=== PATIENT | female | born 1950 | race Caucasian/White ===

== ENCOUNTER → 2017-01-14 | Outpatient (CLI) | payer OTHER ==
[~2017-01-14] MED LIST: ALEVE OTC; PRAVACHOL PO
--- NOTE | ~2017-01-14 | MY11 ---
[facility] A Service of [facility] RADIOLOGY TEXT RESULTS PATIENT: WAGNER HORTON LOCATION: [facility] : 54 UNIT #: [id number] AGE: [address]: ROMA LIVE SEX: F ORDER DR: [id number] [address] [id number] MR#: [id number] Acc #: [id number] NAME: WAGNER HORTON : 1950 SEX: F STUDY DATE/TIME: 01/14/2017 10:08 UNIT: [facility] ROOM: STUDY DESCRIPTION: MY Mammogram Screening Dig Alfredito Attending Physician: Roma Live M.D. Ordering Physician: Physician Non-Staff Primary Care Physician: Roma Live M.D. MEDICAL IMAGING REPORT This report is preliminary unless electronic signature is present EXAM Bilateral digital screening mammogram with CAD. DATE 01/14/2017 HISTORY 66-year-old female with no personal or family history of breast cancer or current complaints. COMPARISON Bilateral screening mammogram, 12/12/2014, 05/13/2010. FINDINGS CC and MLO views were obtained of each breast utilizing digital technique and reviewed with an FDA-approved CAD device. Heterogeneously dense fibroglandular tissue is present bilaterally which can limit sensitivity on mammography. The parenchymal pattern is stable. No new or developing nodule, architectural distortion, or clustered microcalcification is seen. IMPRESSION BIRADS 1. Negative screening mammogram. Routine screening mammogram recommended in 1 year. Patients over the age of 40 are entered into a reminder system with target due date for the next mammogram. A result letter will also be sent to the patient. BIRADS: 1 Negative [facility] A Service [facility] RADIOLOGY TEXT RESULTS PATIENT: WAGNER HORTON LOCATION: [facility] : 54 UNIT #: [id number] AGE: [address]: ROMA LIVE SEX: F ORDER DR: Dictated by... Beth Guerrero M.D. THIS IS AN ELECTRONICALLY VERIFIED REPORT Beth Guerrero M.D. at 01/15/2017 7:03 AM GERBER/padmini TD: 01/14/2017 12:36 JOB #: [id number] MEDICAL IMAGING REPORT Page 1 of 1 COPY
== END | disposition home or self-care (01) ==
LOC: CWCC 09:40
DX: Z12.31 Encounter for screening mammogram for malignant neoplasm of breast (principal)
CPT/HCPCS: G0202